=== PATIENT | female | born 1970 | race Caucasian/White ===

== ENCOUNTER 2019-04-30 11:09 | Emergency (ER) | payer OTHER ==
[~2019-04-30] VITALS: Ht 170.2 cm; Wt 61.2 kg
[2019-04-30] MEDS ORDERED: PROBIOTIC1 EAC4 PO (18:23)
[2019-04-30] MEDS ORDERED: NASAL MIST126 ML NASAL (18:23)
[2019-04-30] MEDS ORDERED: CIPRO500 MG PO (18:23)
[2019-04-30] MEDS ORDERED: PEPCID AC20 MG PO (18:23)
[2019-04-30] MEDS ORDERED: LEVSIN0.125 MG PO (18:23)
== END 2019-04-30 20:23 | disposition home or self-care (01) ==
LOC: ER 11:09
DX: E86.0 Dehydration (principal)